=== PATIENT | male | born 1960 | race Asian ===

== ENCOUNTER 2025-02-05 06:14 | Day surgery (SDC) | payer OTHER ==
[2025-02-04 09:56] VITALS: BMI 29.1
[2025-02-05] MEDS ORDERED: LIDOCAINE HCL 1%, 10 MG/ML (20ML VIAL) ONE (07:26)
[2025-02-05] MEDS ORDERED: HEPARIN NA (PORCINE) 5,000 UNITS/ML 1ML VIAL ONE (07:26)
[2025-02-05] MEDS ORDERED: PROPOFOL 20 ML ONE (12:04)
[2025-02-05] MEDS ORDERED: MIDAZOLAM HCL 2 MG/2 ML SINGLE DOSE VIAL ONE (12:04)
[2025-02-05] MEDS ORDERED: LIDOCAINE HCL/PF 2% SDV 5ML VIAL ONE (12:17)
[2025-02-05] MEDS ORDERED: ROCURONIUM BROMIDE 50 MG/5 ML SYRINGE ONE (12:17)
[2025-02-05] MEDS ORDERED: BUPIVACAINE HCL/PF 0.25% (2.5MG/ML) 10 ML VIAL ONE (12:17)
[2025-02-05] MEDS ORDERED: ONDANSETRON 4 MG/2 ML VIAL IVPUSH PRN (12:48)
[2025-02-05] MEDS ORDERED: PROMETHAZINE HCL 25 MG/1 ML VIAL IVPB PRN (12:48)
[2025-02-05] MEDS ORDERED: DEXAMETHASONE SOD PHOSPHATE 4 MG/1 ML VIAL ONE (13:05)
[2025-02-05] MEDS: BUPIVACAINE HCL/PF 0.5% (5 MG/ML) 30 ML VIAL IJ ONE ×2 (13:17)
[2025-02-05] MEDS ORDERED: ONDANSETRON 4 MG/2 ML VIAL ONE (13:19)
[2025-02-05] MEDS ORDERED: SUGAMMADEX SODIUM 200 MG/2 ML VIAL ONE ×3 (13:19→13:57)
[2025-02-05] MEDS ORDERED: ALBUTEROL SO4 HFA INHALER IH ONE (14:08)
[2025-02-05] MEDS ORDERED: NALOXONE HCL 0.4 MG/ML VIAL ONE (14:18)
[2025-02-05] MEDS ORDERED: ALBUTEROL SO4 2.5/IPRATROPIUM 0.5 INH SOL 3 ML VIAL.NEB. NEB ONE (14:27)
[2025-02-05] MEDS ORDERED: ALBUTEROL SO4 0.083% IH SOL 2.5 MG/3 ML VIAL.NEB. NEB ONE (14:28)
[2025-02-05] MEDS: ALBUTEROL SO4 0.083% IH SOL 2.5 MG/3 ML VIAL.NEB. NEB ONE (14:33)
[2025-02-05 17:17] VITALS: BP 135/65; PULSE 73; RESP 18; TEMP 97.7
== END 2025-02-05 17:11 | disposition home or self-care (01) ==
LOC: JASU-SURG 06:14
PROVIDERS: ATTEND Surgery
PROC: 0WHG43Z Insertion of Infusion Device into Peritoneal Cavity, Percutaneous Endoscopic Approach (ICD-10-PCS; principal; 2025-02-05 11:15)
DX: T85.611A Breakdown (mechanical) of intraperitoneal dialysis catheter, initial encounter (principal); I12.0 Hypertensive chronic kidney disease with stage 5 chronic kidney disease or end stage renal disease; N18.5 Chronic kidney disease, stage 5; Z99.2 Dependence on renal dialysis
CPT/HCPCS: 94640; 94760; J1644